=== PATIENT | female | born 1980 | race Caucasian/White ===

== ENCOUNTER 2018-08-15 11:30 | Inpatient (IN) ==
[2018-08-22] MEDS ORDERED: ceFAZolin 2 GM IV; once IV.SIG SCH (09:45)
[2018-08-22] MEDS ORDERED: Sodium Chlor 0.9% Inj 500 ML IV.CONT ONE (09:45)
[2018-08-22] MEDS ORDERED: Metoprolol Tartrate 25 MG Tablet PO ONE (09:45)
[2018-08-22] MEDS ORDERED: Chlorhexidine Gluconate 2% 1 Pack (2 Cloths) TOPICAL ONE (09:45)
[2018-08-22] MEDS ORDERED: Bupivacaine/Epinephrine Inj 0.25% 50 ML Vial ONE (11:09)
[2018-08-22] MEDS ORDERED: Post-op Orders (for Pharmacy) OTHER STA (14:03)
[2018-08-22] MEDS ORDERED: Naloxone Inj 0.4 MG/ML Vial IV.PUSH PRN (14:06)
[2018-08-22] MEDS ORDERED: Ketamine Inj 500 MG/10 ML Vial ONE (14:24)
[2018-08-22] MEDS ORDERED: fentaNYL Citrate Inj 100 MCG/2 ML Ampul ONE (14:24)
[2018-08-22] MEDS ORDERED: diphenhydrAMINE HCl 12.5 MG/5 ML Elixir UDC PO PRN (15:00)
[2018-08-22] MEDS: Morphine Inj 30 MG/30 ML PCA.VIAL PCA PRN ×2 (15:00→20:13)
[2018-08-22] MEDS ORDERED: Acetaminophen-HYDROcodone 325/7.5 Liq 15 ML UDC PO PRN (15:00)
[2018-08-22] MEDS: KCL 20 mEq/D5W/NaCl 0.45% Inj 1,000 ML IV.CONT SCH ×2 (15:00→20:20)
[2018-08-22] MEDS ORDERED: *Ondansetron Inj 4 MG/2 ML Vial PERIprocedural Use ONLY ONE (15:01)
[2018-08-22] MEDS ORDERED: Enoxaparin Inj 40 MG/0.4 ML Syringe SQ SCH (18:00)
[2018-08-22] MEDS: ceFAZolin Inj 1 GM in Sodium Chlor 0.9% Inj 100 ML IV.SIG SCH (20:15)
[2018-08-23] MEDS: KCL 20 mEq/D5W/NaCl 0.45% Inj 1,000 ML IV.CONT SCH ×2 (00:33→10:39)
[2018-08-23] MEDS: ceFAZolin Inj 1 GM in Sodium Chlor 0.9% Inj 100 ML IV.SIG SCH ×2 (03:10→12:00)
[2018-08-23 05:15] LABS: Baso % (Auto) 0.1 % (0.0-2.0); Hematocrit 33.1 % (35.0-46.0); Lymph # (Auto) 1.1 th/mm3 (1.0-4.8); Lymph % (Auto) 13.7 % (9.0-44.0); Mean Corpuscular HGB Conc 33.2 % (32.0-36.0); Mean Corpuscular Hemoglobin 28.5 pg (27.0-34.0); Mean Corpuscular Volume 85.7 fL (80.0-100.0); Mean Platelet Volume 8.7 fL (7.0-11.0); Mono # (Auto) 0.6 th/mm3 (0.0-0.9); Mono % (Auto) 7.8 % (0.0-8.0); Neut # (Auto) 6.5 th/mm3 (1.8-7.7); Neut % (Auto) 78.4 % (16.0-70.0); Platelet Count 230 th/mm3 (150-450); Red Blood Count 3.86 mil/mm3 (4.00-5.30); Red Cell Distribution Width 15.5 % (11.6-17.2); White Blood Count 8.3 th/mm3 (4.0-11.0)
[2018-08-23 05:35] LABS: Anion Gap 3 meq/L (5-15); Blood Urea Nitrogen 11 mg/dL (7-18); Calcium 8.3 mg/dL (8.5-10.1); Carbon Dioxide 28.8 meq/L (21.0-32.0); Chloride 106 meq/L (98-107); Glomerular Filtration Rate Greater Than 89 mL/min (>89); Glucose,Random 112 mg/dL (74-106); Potassium 4.9 meq/L (3.5-5.1); Sodium 138 meq/L (136-145)
[2018-08-23] MEDS: Morphine Inj 30 MG/30 ML PCA.VIAL PCA PRN (05:57)
[2018-08-23] MEDS ORDERED: Ketorolac Inj 30 MG/ML (IVP) Vial IV.PUSH PRN (08:36)
[2018-08-23] MEDS ORDERED: Scopalamine 1.5 MG Patch T-DERMAL SCH (10:00)
--- NOTE | 2018-08-23 15:20 | P.PNGS ---
Subjective Patient reports: tolerating liquids well, no flatus (Pt denies palpitations, dyspnea or chest pain, c/o nausea uncontrolled by zofran.) Physical Exam Vital signs: Vital Signs 08/22/18 15:30 08/22/18 15:45 08/22/18 16:55 Temperature 97.7 F Pulse Rate 62 64 61 Respiratory Rate 16 16 16 Blood Pressure 115/65 112/64 116/65 Pulse Oximetry 96 96 08/22/18 20:00 08/22/18 21:03 08/23/18 00:00 Temperature 97.1 F L 97.5 F L Pulse Rate 54 L 50 L Respiratory Rate 18 18 19 Blood Pressure 112/63 117/71 Pulse Oximetry 93 L 94 L 08/23/18 01:03 08/23/18 04:00 08/23/18 05:03 Temperature 97.3 F L Pulse Rate 56 L Respiratory Rate 19 19 18 Blood Pressure 105/59 L Pulse Oximetry 96 08/23/18 08:00 08/23/18 12:00 Temperature 97.8 F 98.1 F Pulse Rate 47 L 50 L Respiratory Rate 18 18 Blood Pressure 103/55 L 98/53 L Pulse Oximetry 97 96 Intake & Output 08/22/18 08/23/18 08/23/18 18:59 06:59 18:59 Intake Total 1840 / 1840 2910 / 2910 300 / 300 Output Total 1200 / 1200 Balance 1830 / 1830 1710 / 1710 300 / 300 Weight 145.1 kg 145.1 kg Intake: IV 1150 / 1150 2400 / 2400 300 / 300 D5W/1/2NS + KCL 20 mEq Inj , 1999 / 1999 000 ML @ 125 mls/hr IV.CONT . Q8H [facility] Rx#:[id number] LR 1000 mL Inj 1,000 ML @ 30 1000 / 1000 mls/hr IV.CONT .Q24H [facility] Rx#: [id number] Ofirmev Inj 1,000 mg In 100 ml 100 / 100 @ 400 mls/hr IV.SIG [employer]NAGER [employer]SF[employer] [facility]ANNE Rx#:[id number] Ancef 2 GM Premix Inj 2 gm In 50 / 50 50 ml @ 100 mls/hr IV.SIG MANAGER [employer]SF[employer] ARIANNE Rx#:[id number] Ancef Inj 1 GM In NS Inj 100 ML 200 / 200 100 / 100 @ 200 mls/hr IV.SIG Q8H [facility] Rx #:[id number] Flagyl 500 MG Inj 100 ML @ 200 100 / 100 100 / 100 200 / 200 mls/hr IV.SIG Q8H [facility] Rx#: [id number] Oral 90 / 90 510 / 510 Anesthesia Amount 600 / 600 Output: Urine 1200 / 1200 Estimated Blood Loss Other: # Voids 3 Weight On Admission 145.1 kg Narrative: GENERAL: SKIN: Warm and dry. HEAD: Normocephalic. EYES: No scleral icterus. No injection or drainage. NECK: Supple, trachea midline. No JVD or lymphadenopathy. CARDIOVASCULAR: Regular rate and rhythm without murmurs, gallops, or rubs. RESPIRATORY: Breath sounds equal bilaterally. No accessory muscle use. GASTROINTESTINAL: Abdomen soft, normal post operative tenderness, laparoscopic sites WNL, mildly distended. MUSCULOSKELETAL: No cyanosis, or edema. BACK: Nontender without obvious deformity. No CVA tenderness. Results - Labs 08/23/18 04:13 08/23/18 04:13 Laboratory Results - last 24 hr 08/23/18 08/23/18 04:13 04:13 WBC 8.3 RBC 3.86 L Hgb 11.0 L Hct 33.1 L MCV 85.7 MCH 28.5 MCHC 33.2 RDW 15.5 Plt Count 230 MPV 8.7 Neut % (Auto) 78.4 H Lymph % (Auto) 13.7 Gila % (Auto) 7.8 Eos % (Auto) 0.0 Baso % (Auto) 0.1 Neut # (Auto) 6.5 Lymph # (Auto) 1.1 Gila # (Auto) 0.6 Eos # (Auto) 0.0 Baso # (Auto) 0.0 WBC Differential . Differential Comment Auto diff final Sodium 138 Potassium 4.9 Chloride 106 Carbon Dioxide 28.8 Anion Gap 3 L BUN 11 Creatinine 0.61 Estimated GFR Greater than 89 Random Glucose 112 H Calcium 8.3 L Magnesium 2.0 Assessment and Plan - Plan POD #1 s/p laparoscopic RNY Tolerating 30 ml q 30 clear liquids advance to 60 ml. Start scopalamine, Ambulate ad barbara. 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 Code Status: full Discussed Condition With: patient, RN
--- NOTE | 2018-08-27 21:36 | MP ---
cc: Osmar Guido MD DATE OF OPERATION: 08/27/2018 PREOPERATIVE DIAGNOSES: Morbid obesity with a BMI of 45. POSTOPERATIVE DIAGNOSES: Morbid obesity with a BMI of 45. PROCEDURE PERFORMED: Laparoscopic Weston-en-Y gastric bypass, 100 cm Weston limb, antegastric, antecolic. SURGEON: Osmar Guido MD PROTECTIVE SIGNAL OPERATOR: MD Dr. Chrsitopher Guzman's assistance was necessary for the procedure due to the complexity of the procedure. Dr. White assisted with manipulation and exposure during the procedure. The medical assistant supervisor provided by [employer] managed the camera during the procedure. ANESTHESIA: General endotracheal anesthesia. ESTIMATED BLOOD LOSS: Scant. FINDINGS: Fatty liver. SPECIMENS: None. COMPLICATIONS: None. OPERATION: The patient was brought to the operating room and placed on the operating table in supine position, bilateral sequential inflation device placed on lower extremities, general anesthesia instituted, antibiotics initiated. The abdomen was prepped and draped sterilely. A point 18-cm distal to the xiphoid in the midline anesthetized with 0.25% Marcaine with epinephrine. The skin incision was made, a 5-mm OptiView port placed under direct vision and pneumoperitoneum was created. Under direct vision a 5-mm left upper quadrant, 12-mm left upper quadrant, 12-mm right upper quadrant and 5-mm right upper quadrant ports were placed. Prior to placement of all ports, the skin and peritoneum were anesthetized with 0.25% Marcaine with epinephrine. The patient's omentum was lifted into the upper abdomen. It was split down the middle to create a path for the Weston limb. The ligament of Treitz was identified, a point 40 cm distal identified. The small bowel was divided in this region using an [place] Flex stapler vascular load reinforced with SeamGuard. The distal segment was brought up for a distance of 100 cm, enterotomy created in this region, enterotomy in the biliopancreatic limb and a [id number] stapled jejunojejunostomy created in the usual manner. The mesenteric defect at the jejunojejunostomy was closed with 2-0 Surgidac suture in a running manner. The patient was placed in reverse Trendelenburg position with the left side up. The Karen-Flex retractor was placed. The left lobe of the liver was retracted. The angle of His was taken down bluntly, a point 5 cm distal to the GE junction along the lesser curve identified, the lesser sac entered using blunt dissection. The stomach was partitioned horizontally using an [place]-Flex stapler blue load, an additional firing taken directed towards the angle of His to completely divide the stomach. A gastrotomy created in the new stomach, enterotomy in the Weston limb and gastrojejunostomy created, stomal opening of 2 cm. An 18-Liberian orogastric tube was placed across the anastomosis, the defect then closed in two layers of running 2-0 Vicryl. Prior to placement of the second layer, methylene blue instilled through the orogastric tube. There was no evidence of extravasation. Evicel was then placed over the gastrojejunostomy, jejunojejunostomy and all staple lines. The operative field inspected and hemostasis was present. The CO2 was released, all ports were removed. All skin incisions were closed with 4-0 Monocryl. The abdominal wall was cleaned and a sterile dressing placed. The patient was awakened and taken to the recovery room. MD SPIKE Alva/emory , 09:00 PM , 09:06 PM
== END 2018-08-23 17:01 | disposition home or self-care (01) | DRG 621 ==
LOC: HSDI 08-22 08:34 → N07 08-22 16:18
PROVIDERS: ADMIT Surgery; ATTEND Surgery
CPT/HCPCS: 80048; 83735; 85025; 86850; 86900; 86901; 86920; 86922; 94150; J0131; J0690; J1885; J2250; J2270; J2405; J2765; J3010; J3480; J7120; J8501